=== PATIENT | female | born 1975 | race Caucasian/White ===

== ENCOUNTER 2023-04-05 07:51 | Emergency (ER) | payer BC ==
[~2023-04-05] VITALS: Ht 170.2 cm; Wt 77.1 kg
[2023-04-05 07:59] VITALS: BP_SYST 104; PULSE 71; RESP 19; TEMP 97.3; O2SAT 98
[2023-04-05] MEDS ORDERED: ALBMDI INH (08:32)
[2023-04-05] MEDS ORDERED: PRED20TA PO (08:33)
[2023-04-05 08:40] LABS: COVID19 ANTIGEN SOFIA FIA NEGATIVE (NEGATIVE)
[2023-04-05 08:50] LABS: INFLUENZA TYPE A Negative (NEGATIVE); INFLUENZA TYPE B NEGATIVE (NEGATIVE)
[2023-04-05 09:24] VITALS: BP_SYST 104; PULSE 71; RESP 19; TEMP 97.3; O2SAT 98
== END 2023-04-05 09:23 | disposition home or self-care (01) ==
LOC: SED 07:51
DX: J40 Bronchitis, not specified as acute or chronic (principal); R07.89 Other chest pain; Z88.0 Allergy status to penicillin; Z88.1 Allergy status to other antibiotic agents; Z79.899 Other long term (current) drug therapy; Z20.822 Contact with and (suspected) exposure to COVID-19
CPT/HCPCS: 36415; 71045; 99284